=== PATIENT | male | born 1975 | race Caucasian/White ===

== ENCOUNTER 2016-12-01 21:48 | Emergency (ER) | payer BC ==
[2016-12-01] MEDS ORDERED: Ondansetron ODT 4 MG TAB ONE ×2 (22:09→22:10)
[2016-12-01] MEDS ORDERED: Ondansetron HCl/PF 4 MG/2 ML Vial ONE (22:58)
[2016-12-01] MEDS ORDERED: Metoclopramide HCl 10 MG TAB ONE (23:45)
--- NOTE | 2016-12-02 06:27 | ERRECORD ---
[facility] EMERGENCY RECORD HPI NAUSEA/VOMITING/DIARRHEA (22:48 BPIC) CHIEF COMPLAINT: Patient presents for evaluation of nausea, Patient presents for evaluation of vomiting, Denies diarrhea. HISTORIAN: History provided by patient, Pt with N/V/D that has started within the past 24-48 hours. Pt traveling from [place] to [place] and ate some fajitas a couple of hours prior to feeling sick. Mild non focal abdominal cramping. LOCATION FEMALE: Symptoms are generalized. TIME COURSE: Gradual onset of symptoms, There has been no change in the patient's symptoms over time. ASSOCIATED WITH FEMALE: No associated bright red blood per rectum, No associated hematemesis. EXACERBATED BY: Patient's condition exacerbated by nothing. RELIEVED BY: Patient's condition relieved by nothing. ROS (22:48 BPIC) CONSTITUTIONAL: Negative constitutional review of systems, Historian denies chills, Historian denies fever. EYES: Negative eye review of systems. ENT: Negative ears, nose, throat review of systems. CARDIOVASCULAR: Negative cardiovascular review of systems, Historian denies chest pain, Historian denies palpitations. RESPIRATORY: Negative respiratory review of systems, Historian denies cough, Historian denies shortness of breath. GI: see hpi. MUSCULOSKELETAL: Negative musculoskeletal review of systems. SKIN: Negative skin review of systems. NEUROLOGIC: Negative neurologic review of systems. ENDOCRINE: Negative endocrine review of systems. HEMO/LYMPHATIC: Normal hematologic/lymphatic system review. PSYCHIATRIC: Negative psychiatric review of systems. NOTES: All other ROS is negative except as listed in HPI. PAST MEDICAL HISTORY MEDICAL HISTORY: Flu vaccine not up to date. (21:53 SFRE) MALE SURGICAL HISTORY: Patient has no surgical history. (21:53 SFRE) PSYCHIATRIC HISTORY: No previous psychiatric history. (21:53 SFRE) SOCIAL HISTORY: Patient drinks socially, twice a month, Patient denies drug use, Patient has no smoking history. (21:53 SFRE) NOTES: I have reviewed and agree with the PMH/PSxH/FamHx/SocHx obtained by the nurse. (22:48 BPIC) KNOWN ALLERGIES Penicillins &a-1R&a+25V*p+0X*e3555K*c202B*c15G*c2P*p-0X&a-25V&a+1R Name: Chris Casey : 1975 M41 MedRec: [id number] AcctNum: [id number] Prepared: TueDec 15, 2016 13:40 by Interface Page 1 of 4 pMD [facility] EMERGENCY RECORD CURRENT MEDICATIONS No recorded medications VITAL SIGNS VITAL SIGNS: BP: 128/86, Pulse: 68, Resp: 18, Temp: 97.1 (Tympanic), Pain: 0, O2 sat: 100 on Room Air, Time: 12/01/2016 21:49. (21:49 SFRE) BP: 111/84, Pulse: 66, O2 sat: 98 on Room Air, Time: 12/02/2016 00:25. (TueDec 02, 2016 00:25 EROG) BP: 121/70, Pulse: 65, O2 sat: 98 on Room Air, Time: 12/02/2016 01:01. (TueDec 02, 2016 01:01 EROG) BP: 130/78, Pulse: 93, O2 sat: 98 on Room Air, Time: 12/02/2016 02:00. (TueDec 02, 2016 02:00 EROG) BP: 114/65, Pulse: 65, O2 sat: 98 on Room Air, Time: 12/02/2016 03:00. (TueDec 02, 2016 03:00 EROG) BP: 116/67, Pulse: 58, O2 sat: 98 on Room Air, Time: 12/02/2016 04:00. (TueDec 02, 2016 04:00 EROG) BP: 116/48, Pulse: 56, O2 sat: 98 on Room Air, Time: 12/02/2016 06:03. (TueDec 02, 2016 06:03 EROG) PHYSICAL EXAM (22:48 BPIC) CONSTITUTIONAL: Vital signs reviewed, Patient appears non toxic, Patient alert and oriented to person, place and time, Pt is in no apparent distress. HEAD: Head exam included findings of head atraumatic, normocephalic. EYES: Eye exam included findings of eyelids normal to inspection, Pupils equally round and reactive to light, Extraocular muscles intact. ENT: ENT exam normal, Nose exam normal, no nasal deformity, no bleeding from nares, Pharynx exam normal, Mouth exam normal, mucous membranes moist. NECK: Neck exam included findings of normal range of motion, Trachea midline. RESPIRATORY CHEST: Respiratory and chest exam normal, Breath sounds clear, No wheezing, No rales, Chest exam included findings of chest movement symmetrical, Chest expansion equal. CARDIOVASCULAR: Cardiovascular assessment normal, Cardiovascular exam included findings of heart rate regular rate and rhythm, Heart sounds normal. ABDOMEN FEMALE: Abdominal exam included findings of abdomen nontender, Bowel sounds normal, no mass, no pulsatile masses, no peritoneal signs. BACK: Back exam included findings of normal inspection, range of motion normal, no costovertebral angle tenderness. UPPER EXTREMITY: Upper extremity exam included findings of inspection normal, Range of motion normal. LOWER EXTREMITY: Lower extremity exam included findings of inspection normal, Range of motion normal. &a-1R&a+25V*p+0X*k1782V*c202B*c15G*c2P*p-0X&a-25V&a+1R Name: Chris Casey : 1975 M41 MedRec: [id number] AcctNum: [id number] Prepared: TueDec 15, 2016 13:40 by Interface Page 2 of 4 D [facility] EMERGENCY RECORD NEURO: Neuro exam findings include patient oriented to person, place and time, Speech normal, no focal motor deficits, no focal sensory deficits. SKIN: Skin exam included findings of skin warm, dry, and normal in color. LYMPHATIC: Lymphatic exam normal. PSYCHIATRIC: Psychiatric exam included findings of patient oriented to person place and time, Normal affect. MEDICATION ADMINISTRATION SUMMARY Drug Name: sodium chloride 0.9 % intravenous, Dose Ordered: 1000 mL, Route: IV Fluid Infusion, Status: Canceled, Time: 23:43 12/01/2016, Drug Name: ondansetron HCl intravenous, Dose Ordered: 4 mg, Route: IV Push, Status: Canceled, Time: 23:43 12/01/2016, Drug Name: metoclopramide injection, Dose Ordered: 10 mg, Route: Oral, Status: Given, Time: 23:48 12/01/2016, Drug Name: Zofran ODT, Dose Ordered: 8 mg, Route: Oral, Status: Given, Time: 22:18 12/01/2016, Detailed record available in Medication Service section. DOCTOR NOTES (22:48 BPIC) TEXT: N/V/D symptomatic treatment, icreased fluid intake and Return to the ED with any development of increasing abdominal pain. likely viral gastroenteritis, but risks of appendicitis discussed I discussed the diagnosis with the patient prior to discharge. All questions were answered. There is no indication for admission currently and the patient will follow up with his primary care physician. Any pertinent labs or imaging was reviewed and dicussed with the patient. If any new or emergent symptoms occur, the patient will return to the emergency department. PROBLEM LIST No recorded problems DIAGNOSIS (23:44 BPIC) FINAL: PRIMARY: Nausea with vomiting. PRESCRIPTION (23:44 BPIC) Zofran ODT: TABLET,DISINTEGRATING : 8 mg : ORAL : Quantity: 8 Unit: mg Route: ORAL Schedule: every 6 hours PRN Dispense: 20 Unit: tab(s) May substitute. Refills: No Refills . NOTES: No Refills. DISPOSITION PATIENT: Disposition Type: Discharge, Disposition: *Discharge Home, Condition: Good. (23:44 BPIC) Disposition Transport: Car. (TueDec 02, 2016 06:08 MCRS) &a-1R&a+25V*p+0X*y4081S*c202B*c15G*c2P*p-0X&a-25V&a+1R Name: Chris Casey Maurice : 1975 3 MedRec: [id number] AcctNum: [id number] Prepared: TueDec 15, 2016 13:40 by Interface Page 3 of 4 pMD [facility] EMERGENCY RECORD Patient left the department. (TueDec 02, 2016 06:12 MCRS) Driscoll: BPIC=MD Marcio, Al BECKOG=KALIN Quinones, Viet MCRS=KALIN Culver, Adelfo COLE=KALIN Chavarria, Yaritza &a-1R&a+25V*p+0X*y2465P*c202B*c15G*c2P*p-0X&a-25V&a+1R Name: JacintoChris : 1975 3 MedRec: [id number] AcctNum: [id number] Prepared: TueDec 15, 2016 13:40 by Interface Page 4 of 4 pMD [facility]
--- NOTE | 2016-12-02 06:29 | PICIS ---
[facility] EMERGENCY RECORD TRIAGE (21:51 SFRE) PATIENT: NAME: Chris Casey, AGE: 41, GENDER: male, : Tue1975, TIME OF GREET: TueDec 01, 2016 21:48, PREFERRED LANGUAGE: Latvian, ECODE BILLING MAP: [facility], Zip Code: [address], KG WEIGHT: 30.84, [facility] COLOR CODE: Green, PHONE: , , , PERSON ID: [id number], PCP: OOT. (21:51 SFRE) TRIAGE NOTES: PATIENT VOMITED A COUPLE TIMES. (21:51 SFRE) COMPLAINT: STOMACH ACHE. (21:51 SFRE) ADMISSION: URGENCY: 4 Non Urgent, ADMISSION SOURCE: Other, TRANSPORT: AMBULANCE - [facility], BED: ED -05. (21:51 SFRE) ASSESSMENT: Assessment: PATIENT IS DEMANDING AN IV AT THIS TIME. STATES HE IS SO DEHYDRATED. VSS. NAD NOTED, Symptoms began 2 HOURS AGO, Symptoms began 2 hours ago. (21:53 SFRE) PAIN: No complaint of pain. (21:53 SFRE) IMMUNIZATIONS: Flu vaccine not up to date. (21:53 SFRE) SIRS SCORING: Heart Rate 55-109 (0), Temp range 96.8-101.1 (0), respiratory rate 12-24 (0), Mental Status altered: no (0). (21:53 SFRE) TRIAGE SCREENING: Patient denies suicidal ideation, Patient denies presence of domestic violence. (21:53 SFRE) TREATMENTS IN PROGRESS: See EMS Record. (21:54 SFRE) PROVIDERS: TRIAGE NURSE: Yaritza Chavarria RN. (21:51 SFRE) VITAL SIGNS: BP 128/86, Pulse 68, Resp 18, Temp 97.1, (Tympanic), Pain 0, O2 Sat 100, on Room Air, Time 12/01/2016 21:49. (21:49 SFRE) KNOWN ALLERGIES Penicillins CURRENT MEDICATIONS No recorded medications VITAL SIGNS VITAL SIGNS: BP: 128/86, Pulse: 68, Resp: 18, Temp: 97.1 (Tympanic), Pain: 0, O2 sat: 100 on Room Air, Time: 12/01/2016 21:49. (21:49 SFRE) BP: 111/84, Pulse: 66, O2 sat: 98 on Room Air, Time: 12/02/2016 00:25. (TueDec 02, 2016 00:25 EROG) BP: 121/70, Pulse: 65, O2 sat: 98 on Room Air, Time: 12/02/2016 01:01. (TueDec 02, 2016 01:01 EROG) BP: 130/78, Pulse: 93, O2 sat: 98 on Room Air, Time: 12/02/2016 02:00. (TueDec 02, 2016 02:00 EROG) BP: 114/65, Pulse: 65, O2 sat: 98 on Room Air, Time: 12/02/2016 03:00. (TueDec 02, 2016 03:00 EROG) BP: 116/67, Pulse: 58, O2 sat: 98 on Room Air, Time: 12/02/2016 04:00. (TueDec 02, 2016 04:00 EROG) BP: 116/48, Pulse: 56, O2 sat: 98 on Room Air, Time: 12/02/2016 06:03. (TueDec 02, 2016 06:03 EROG) &a-1R&a+25V*p+0X*w7863W*c202B*c15G*c2P*p-0X&a-25V&a+1R Name: Chris Casey : 1975 M41 MedRec: [id number] AcctNum: [id number] Prepared: TueDec 15, 2016 13:46 by Interface Page 1 of 7 pMD [facility] EMERGENCY RECORD NURSING ASSESSMENT: ABDOMEN (21:59 SFRE) CONSTITUTIONAL: Patient arrives, via stretcher, via [facility], History obtained from patient, Patient appears, generally ill, Patient cooperative, Patient alert, Oriented to person, place and time, Skin warm, Skin dry, Skin, pale in color, Mucous membranes pink, Mucous membranes moist, Patient is well-groomed, Patient complains of VOMITING. PAIN: Patient rates pain as 0 out of 10. ABDOMEN: Abdomen assessment findings include abdomen symmetrical, Associated with nausea, Associated with vomiting, currently, having bilious emesis, REPORTS VOMITING ABOUT 2 HOURS AFTER EATING. VOMITED FOOD SEVERAL TIMES. GENITOURINARY MALE: no associated urinary complaints. SAFETY: Side rails up, Cart/Stretcher in lowest position, Call light within reach, Hospital ID band on. NURSING PROCEDURE: DISCHARGE NOTE (TueDec 02, 2016 06:00 MCRS) DISCHARGE: Patient discharged to home, ambulating without assistance, friend driving, unaccompanied, Summary of Care printed/ provided, Patient requested and was provided an electronic copy of Discharge Instructions, Transition record given to patient, Discharge instructions given to patient, Simple or moderate discharge teaching performed, discharge instructions, Prescriptions given and instructions on side effects given, Above person(s) verbalized understanding of discharge instructions and follow-up care, Patient treated and evaluated by physician. BELONGINGS: Valuables remain with patient. NURSING PROCEDURE: NURSE NOTES NURSES NOTES: Notes: RESTING QUIETLY, ON CELL PHONE. STATES HE IS NOT BETTER BUT IS REQUESTING SOMETHING TO DRINK. INFORMED PATIENT TO GIVE MEDICATION A LITTLE LONGER AND THEN WILL TRY SOME FLUIDS. PATIENT AGREED. (22:32 SFRE) Notes: UNSUCCESSFUL ATTEMPTS AT IV INSERTION. PATIENT STATES HE WOULD RATHER JUST HAVE MORE PO MEDS AND SEE IF HE FEELS BETTER. (23:19 SFRE) Notes: PATIENT ASKED TO HAVE DRINK OF GATORADE. NO EMESIS NOTED AFTER. (23:10 SFRE) Shift change report given, to REPORT TO LIAN. (23:49 SFRE) Patient in no apparent distress, Pillow given to patient, Warm blanket given to patient, Notes: PATIENT IN ROOM WAITING FOR RIDE ... NOT NAUSIA AT THIS TIME... RESTING AT THIS TIME.. (23:51 MCRS) Notes: patient contacted ride home - stated his condition has significantly improved since arrival... discharged to home with currently waiting [facility] for ride home.. (TueDec 02, 2016 06:00 MCRS) ORDER DETAILS Order Name: CBC with Differential, Status: Canceled, Time: 23:58 &a-1R&a+25V*p+0X*j6395O*c202B*c15G*c2P*p-0X&a-25V&a+1R Name: Chris Casey : 1975 M41 MedRec: [id number] AcctNum: [id number] Prepared: TueDec 15, 2016 13:46 by Interface Page 2 of 7 pMD [facility] EMERGENCY RECORD 12/01/2016, User: System, - Ordered for: MD Buckley Bryan, - Entered by: MD Buckley Bryan - TueDec 01, 2016 22:50, - Quantity: 1, Order Name: Comprehensive Metabolic Panel, Status: Canceled, Time: 23:58 12/01/2016, User: System, - Ordered for: MD Buckley Bryan, - Entered by: MD Buckley Bryan - TueDec 01, 2016 22:50, - Quantity: 1, Order Name: I & D, Status: Canceled, Time: 22:11 12/01/2016, User: ilustrumE, - Ordered for: MD Buckley Bryan, - Entered by: MD Buckley Bryan - TueDec 01, 2016 22:10, - Quantity: 1. MEDICATION ADMINISTRATION SUMMARY Drug Name: sodium chloride 0.9 % intravenous, Dose Ordered: 1000 mL, Route: IV Fluid Infusion, Status: Canceled, Time: 23:43 12/01/2016, Drug Name: ondansetron HCl intravenous, Dose Ordered: 4 mg, Route: IV Push, Status: Canceled, Time: 23:43 12/01/2016, Drug Name: metoclopramide injection, Dose Ordered: 10 mg, Route: Oral, Status: Given, Time: 23:48 12/01/2016, Drug Name: Zofran ODT, Dose Ordered: 8 mg, Route: Oral, Status: Given, Time: 22:18 12/01/2016, Detailed record available in Medication Service section. MEDICATION SERVICE metoclopramide injection: Order: metoclopramide injection (metoclopramide HCl) - Dose: 10 mg : Oral Ordered by: Al Buckley MD Entered by: Al Buckley MD TueDec 01, 2016 23:43 , Acknowledged by: Yaritza Chavarria RN TueDec 01, 2016 23:44 Documented as given by: Yaritza Chavarria RN TueDec 01, 2016 23:48 Patient, Medication, Dose, Route and Time verified prior to administration. Amount given: 10MG, Site: Medication administered P.O., Correct patient, time, route, dose and medication confirmed prior to administration, Patient advised of actions and side-effects prior to administration, Allergies confirmed and medications reviewed prior to administration, Patient in position of comfort, Side rails up, Cart in lowest position, Family at bedside. : Follow Up : Response assessment performed, No signs or symptoms of allergic reaction noted, Decreased vomiting, Decreased nausea. (TueDec 02, 2016 06:00 MCRS) Zofran ODT: Order: Zofran ODT (ondansetron) - Dose: 8 mg : Oral Schedule: Now Ordered by: Al Buckley MD Entered by: Al Buckley MD TueDec 01, 2016 22:16 &a-1R&a+25V*p+0X*h9734J*c202B*c15G*c2P*p-0X&a-25V&a+1R Name: Chris Casey : 1975 M41 MedRec: [id number] AcctNum: [id number] Prepared: TueDec 15, 2016 13:46 by Interface Page 3 of 7 pMD [facility] EMERGENCY RECORD Documented as given by: Yaritza Chavarria RN TueDec 01, 2016 22:18 Patient, Medication, Dose, Route and Time verified prior to administration. Amount given: 8MG, Site: Medication administered P.O., Correct patient, time, route, dose and medication confirmed prior to administration, Patient advised of actions and side-effects prior to administration, Allergies confirmed and medications reviewed prior to administration, Administered by .NATIVIDAD GUZMAN RN, Patient in position of comfort, Side rails up, Cart in lowest position. : Follow Up : Response assessment performed, No signs or symptoms of allergic reaction noted, No change in symptoms, No change in vomiting, No change in nausea, VOMITED ABOUT 50CC OF BILIOUS FLUID. (22:45 SFRE) : Follow Up : Response assessment performed, No signs or symptoms of allergic reaction noted, Decreased vomiting, Decreased nausea. (TueDec 02, 2016 06:00 MCRS) (CANCELED) ondansetron HCl intravenous: Order: ondansetron HCl intravenous (ondansetron HCl) - Dose: 4 mg : IV Push Ordered by: Al Buckley MD Entered by: Al Buckley MD TueDec 01, 2016 22:50 , Acknowledged by: Yaritza Chavarria RN TueDec 01, 2016 22:58 Canceled by: Yaritza Chavarria RN. TueDec 01, 2016 23:43 Cancel reason: Change in medication plan. (CANCELED) sodium chloride 0.9 % intravenous: Order: sodium chloride 0.9 % intravenous (0.9 % sodium chloride) - Dose: 1000 mL : IV Fluid Infusion Ordered by: Al Buckley MD Entered by: Al Buckley MD TueDec 01, 2016 22:50 , Acknowledged by: Yaritaz Chavarria RN TueDec 01, 2016 22:58 Canceled by: Yaritza Chavarria RN. TueDec 01, 2016 23:43 Cancel reason: Change in medication plan. HPI NAUSEA/VOMITING/DIARRHEA (22:48 BPIC) CHIEF COMPLAINT: Patient presents for evaluation of nausea, Patient presents for evaluation of vomiting, Denies diarrhea. HISTORIAN: History provided by patient, Pt with N/V/D that has started within the past 24-48 hours. Pt traveling from [place] to [place] and ate some fajitas a couple of hours prior to feeling sick. Mild non focal abdominal cramping. LOCATION FEMALE: Symptoms are generalized. TIME COURSE: Gradual onset of symptoms, There has been no change in the patient's symptoms over time. ASSOCIATED WITH FEMALE: No associated bright red blood per rectum, No associated hematemesis. EXACERBATED BY: Patient's condition exacerbated by nothing. RELIEVED BY: Patient's condition relieved by nothing. ROS (22:48 BPIC) CONSTITUTIONAL: Negative constitutional review of systems, Historian denies chills, Historian denies fever. &a-1R&a+25V*p+0X*l3606P*c202B*c15G*c2P*p-0X&a-25V&a+1R Name: Chris Casey : 1975 M41 MedRec: [id number] AcctNum: [id number] Prepared: TueDec 15, 2016 13:46 by Interface Page 4 of 7 pMD [facility] EMERGENCY RECORD EYES: Negative eye review of systems. ENT: Negative ears, nose, throat review of systems. CARDIOVASCULAR: Negative cardiovascular review of systems, Historian denies chest pain, Historian denies palpitations. RESPIRATORY: Negative respiratory review of systems, Historian denies cough, Historian denies shortness of breath. GI: see hpi. MUSCULOSKELETAL: Negative musculoskeletal review of systems. SKIN: Negative skin review of systems. NEUROLOGIC: Negative neurologic review of systems. ENDOCRINE: Negative endocrine review of systems. HEMO/LYMPHATIC: Normal hematologic/lymphatic system review. PSYCHIATRIC: Negative psychiatric review of systems. NOTES: All other ROS is negative except as listed in HPI. PAST MEDICAL HISTORY MEDICAL HISTORY: Flu vaccine not up to date. (21:53 SFRE) MALE SURGICAL HISTORY: Patient has no surgical history. (21:53 SFRE) PSYCHIATRIC HISTORY: No previous psychiatric history. (21:53 SFRE) SOCIAL HISTORY: Patient drinks socially, twice a month, Patient denies drug use, Patient has no smoking history. (21:53 SFRE) NOTES: I have reviewed and agree with the PMH/PSxH/FamHx/SocHx obtained by the nurse. (22:48 BPIC) PHYSICAL EXAM (22:48 BPIC) CONSTITUTIONAL: Vital signs reviewed, Patient appears non toxic, Patient alert and oriented to person, place and time, Pt is in no apparent distress. HEAD: Head exam included findings of head atraumatic, normocephalic. EYES: Eye exam included findings of eyelids normal to inspection, Pupils equally round and reactive to light, Extraocular muscles intact. ENT: ENT exam normal, Nose exam normal, no nasal deformity, no bleeding from nares, Pharynx exam normal, Mouth exam normal, mucous membranes moist. NECK: Neck exam included findings of normal range of motion, Trachea midline. RESPIRATORY CHEST: Respiratory and chest exam normal, Breath sounds clear, No wheezing, No rales, Chest exam included findings of chest movement symmetrical, Chest expansion equal. CARDIOVASCULAR: Cardiovascular assessment normal, Cardiovascular exam included findings of heart rate regular rate and rhythm, Heart sounds normal. &a-1R&a+25V*p+0X*m2992R*c202B*c15G*c2P*p-0X&a-25V&a+1R Name: Chris Casey : 1975 M41 MedRec: [id number] AcctNum: [id number] Prepared: TueDec 15, 2016 13:46 by Interface Page 5 of 7 pMD [facility] EMERGENCY RECORD ABDOMEN FEMALE: Abdominal exam included findings of abdomen nontender, Bowel sounds normal, no mass, no pulsatile masses, no peritoneal signs. BACK: Back exam included findings of normal inspection, range of motion normal, no costovertebral angle tenderness. UPPER EXTREMITY: Upper extremity exam included findings of inspection normal, Range of motion normal. LOWER EXTREMITY: Lower extremity exam included findings of inspection normal, Range of motion normal. NEURO: Neuro exam findings include patient oriented to person, place and time, Speech normal, no focal motor deficits, no focal sensory deficits. SKIN: Skin exam included findings of skin warm, dry, and normal in color. LYMPHATIC: Lymphatic exam normal. PSYCHIATRIC: Psychiatric exam included findings of patient oriented to person place and time, Normal affect. EVENTS TRANSFER: Triage to Emergency Main ED -05. (TueDec 01, 2016 21:51 SFRE) Removed from Emergency Main ED -05. (TueDec 02, 2016 06:12 [facility]) DOCTOR NOTES (22:48 BPIC) TEXT: N/V/D symptomatic treatment, icreased fluid intake and Return to the ED with any development of increasing abdominal pain. likely viral gastroenteritis, but risks of appendicitis discussed I discussed the diagnosis with the patient prior to discharge. All questions were answered. There is no indication for admission currently and the patient will follow up with his primary care physician. Any pertinent labs or imaging was reviewed and dicussed with the patient. If any new or emergent symptoms occur, the patient will return to the emergency department. PROBLEM LIST No recorded problems DIAGNOSIS (23:44 BPIC) FINAL: PRIMARY: Nausea with vomiting. DISPOSITION PATIENT: Disposition Type: Discharge, Disposition: *Discharge Home, Condition: Good. (23:44 BPIC) Disposition Transport: Car. (TueDec 02, 2016 06:08 MCRS) Patient left the department. (TueDec 02, 2016 06:12 [facility]) INSTRUCTION (23:44 BPIC) DISCHARGE: NAUSEA VOMITING 4YADULT. FOLLOWUP: PA, -, Primary Care Referral Line, . &a-1R&a+25V*p+0X*p6335I*c202B*c15G*c2P*p-0X&a-25V&a+1R Name: JacintoChris : 1975 M41 MedRec: [id number] AcctNum: [id number] Prepared: TueDec 15, 2016 13:46 by Interface Page 6 of 7 pMD [facility] EMERGENCY RECORD SPECIAL: Please follow up with your physician in the next 2-3 days. Return to the Emergency Room with any worsening of your symptoms or other emergent concerns. Thank you for choosing [facility] for your care today, and God Bless You!. PRESCRIPTION (23:44 BPIC) Zofran ODT: TABLET,DISINTEGRATING : 8 mg : ORAL : Quantity: 8 Unit: mg Route: ORAL Schedule: every 6 hours PRN Dispense: 20 Unit: tab(s) May substitute. Refills: No Refills . NOTES: No Refills. IMAGING (TueDec 02, 2016 06:06 MCRS) *SUPPLY CHARGE SHEET: Image captured from scanner. *DISCHARGE INSTRUCTIONS RECEIPT: Image captured from scanner. ADMIN DIGITAL SIGNATURE: KALIN Chavarria Stacey. (23:50 SFRE) KALIN Quinones Eugene. (TueDec 02, 2016 06:04 EROG) KALIN Quinones Eugene. (TueDec 02, 2016 06:06 EROG) KALIN Culver Mikel. (TueDec 02, 2016 06:10 MCRS) KALIN Culver Mikel. (TueDec 09, 2016 23:16 MCRS) MD Buckley Bryan. (TueDec 15, 2016 13:37 BPIC) Driscoll: BPIC=MD Buckley Bryan EROG=KALIN Quinones Eugene MCRS=KALIN Culver Mikel SFRE=KALIN Chavarria Stacey &a-1R&a+25V*p+0X*k6815M*c202B*c15G*c2P*p-0X&a-25V&a+1R Name: Jacinto Chris Maurice : 1975 M41 MedRec: [id number] AcctNum: [id number] Prepared: TueDec 15, 2016 13:46 by Interface Page 7 of 7 pMD MTDD
== END 2016-12-02 06:00 | disposition home or self-care (01) ==
LOC: MADERS 21:48
DX: R11.2 Nausea with vomiting, unspecified (principal)
CPT/HCPCS: 99284; J2405; Q0162